=== PATIENT | male | born 1995 | race Caucasian/White ===

== ENCOUNTER 2022-05-07 13:07 | Emergency (ER) | payer OTHER ==
[~2022-05-07] VITALS: Ht 182.9 cm; Wt 83.9 kg
[2022-05-07] MEDS ORDERED: NAPROSYN500 MG PO (13:34)
[2022-05-07] MEDS ORDERED: LIDODERM1 EACH TD (13:34)
== END 2022-05-07 14:00 | disposition home or self-care (01) ==
LOC: ED 13:07
DX: S16.1XXA Strain of muscle, fascia and tendon at neck level, initial encounter (principal); V89.2XXA Person injured in unspecified motor-vehicle accident, traffic, initial encounter
CPT/HCPCS: A9270; J1885

== ENCOUNTER 2023-01-03 | Emergency (ER) | payer SELFPAY ==
[~2023-01-03] VITALS: Ht 188 cm; Wt 68.2 kg
[~2023-01-03] MED LIST: LIDODERM1 EACH TD; NAPROSYN500 MG PO
[2023-01-03 02:01] VITALS: BP 91/73
== END 2023-01-03 02:03 | disposition home or self-care (01) ==
LOC: ED
DX: F41.9 Anxiety disorder, unspecified (principal); Z88.8 Allergy status to other drugs, medicaments and biological substances
CPT/HCPCS: 99283